=== PATIENT | female | born 1960 | race African-American/Black ===

== ENCOUNTER 2018-08-27 07:53 | Outpatient (CLI) | payer OTHER ==
--- NOTE | 2018-08-27 10:28 | RAD ---
LUMBAR SPINE 4 VIEWS: HISTORY: Low back pain. COMPARISON: MRI of 08/24/2018. FINDINGS: There is multilevel degenerative disk space height loss at L3-4, L4-5, and L5-S1. There is grade I L 3 over L4 anterolisthesis in the neutral position approximately 7 mm without significant translation with flexion or extension. Paraspinal soft tissues are unremarkable. IMPRESSION: No significant translation of the lumbar spine. Please see recent MRI exam. POS: [facility]
== END 2018-08-27 07:54 | disposition home or self-care (01) ==
LOC: MERGE 07:53 → BICRAD 07:53
PROVIDERS: ATTEND Neurological Surgery
DX: M54.16 Radiculopathy, lumbar region (principal)
CPT/HCPCS: 72110

== ENCOUNTER 2018-09-05 06:34 | Outpatient (CLI) | payer OTHER ==
--- NOTE | 2018-09-05 12:48 | ULT ---
ULTRASOUND ABDOMEN LIMITED: (RIGHT UPPER QUADRANT) HISTORY: Right upper quadrant abdominal pain in 58-year-old female. FINDINGS: The gallbladder has normal wall thickness and has no evidence of gallstones or sludge. The hepatic e chogenicity is normal. The right kidney has normal echogenicity and has no hydronephrosis. The panc reas is visualized, although ultrasound is relatively insensitive for pancreatic pathology compared t o CT and MRI. There is no biliary dilation. The common duct caliber is 3 mm. IMPRESSION: Normal. ruth ann POS: [facility]
== END 2018-09-05 06:35 | disposition home or self-care (01) ==
LOC: BICULT 06:34 → MERGE 07:15
PROVIDERS: ATTEND Family Medicine
DX: R10.11 Right upper quadrant pain (principal)
CPT/HCPCS: 76705

== ENCOUNTER 2019-11-26 15:09 | Outpatient (CLI) | payer OTHER ==
--- NOTE | 2019-11-26 15:44 | MMO ---
Bilateral MAMMO Bilat Screen [facility]. CLINICAL HISTORY: Patient is 59 years old and is seen for screening. The patient has the following family history of breast cancer: sister, at age 60. The patient has no personal history of cancer. VIEWS: The views performed were: bilateral craniocaudal with tomosynthesis and bilateral mediolateral oblique with tomosynthesis. FILMS COMPARED: The present examination has been compared to prior imaging studies performed at [facility] on 04/12/2016. This study has been interpreted with the assistance of computer-aided detection. MAMMOGRAM FINDINGS: The breasts are heterogeneously dense, which could obscure a lesion on mammography. There are stable benign appearing calcifications seen in both breasts. There are no suspicious masses, suspicious calcifications, or new areas of architectural distortion. IMPRESSION: THERE IS NO MAMMOGRAPHIC EVIDENCE OF MALIGNANCY. A ROUTINE FOLLOW-UP MAMMOGRAM IN 1 YEAR IS RECOMMENDED. THE RESULTS OF THIS EXAM WERE SENT TO THE PATIENT. ACR BI-RADS Category 2 - Benign finding MAMMOGRAPHY NOTE: 1. A negative mammogram report should not delay a biopsy if a dominant of clinically suspicious mass is present. 2. Approximately 10% to 15% of breast cancers are not detected by mammography. 3. Adenosis and dense breasts may obscure an underlying neoplasm. Reported by: KARIME NUNEZ MD Electonically Signed: [id number]
== END 2019-11-26 15:10 | disposition home or self-care (01) ==
LOC: BICMAMMO 15:09
PROVIDERS: ATTEND Internal Medicine Hospice and Palliative Medicine
DX: Z12.31 Encounter for screening mammogram for malignant neoplasm of breast (principal); Z80.3 Family history of malignant neoplasm of breast
CPT/HCPCS: 77063; 77067

== ENCOUNTER 2020-07-01 10:05 | Emergency (ER) | payer OTHER ==
[2020-07-01 11:39] LABS: Troponin I Less than 0.010 ng/mL (< 0.028)
[2020-07-01 11:40] LABS: ALT (SGPT) 336 U/L (8-55); AST (SGOT) 193 U/L (5-34); Albumin 4.1 g/dL (3.5-5.0); Alkaline Phosphatase 553 U/L (40-110); Anion Gap 19 mmol/L (10-20); BUN (Urea Nitrogen) 26 mg/dL (9.8-20.1); Bilirubin, Direct 2.4 mg/dL (0.1-0.3); Bilirubin, Total 3.4 mg/dL (0.2-1.2); Calc. Creatinine Clearance 0 mL/min (70-130); Calcium 8.9 mg/dL (7.8-10.44); Carbon Dioxide 16 mmol/L (22-29); Chloride 102 mmol/L (98-107); Estimated GFR-MDRD 46; Globulin 3.8 g/dL (2.4-3.5); Glucose 312 mg/dL (70-105); Lipase 51 U/L (8-78); Potassium 4.2 mmol/L (3.5-5.1); Protein, Total 7.9 g/dL (6.0-8.3); Sodium 133 mmol/L (136-145)
--- NOTE | 2020-07-01 12:07 | ULT ---
RIGHT UPPER QUADRANT ULTRASOUND: Date: 07/01/2020 INDICATION: History of right upper quadrant abdominal pain and abnormal LFTs. COMPARISON: Prior exam dated 09/05/2018. FINDINGS: There is diffuse increased echogenicity of the liver consistent with changes of fatty infiltration. L iver measures 13.25 cm. No focal hepatic lesion is evident. Gallbladder was normal appearing. No sono graphic Marie's sign reported. Common bile duct measures 1.6 mm. Right kidney measures 10.0 x 5.6 x 4.5 cm. No focal renal lesion or hydronephrosis evident. Visualized aspects of the pancreas are unrem arkable appearing. IMPRESSION: Fatty liver. POS: [facility]
[2020-07-01 12:12] LABS: #Basophils 0.1 thou/uL (0.0-0.2); #Eosinphils 0.2 thou/uL (0.0-0.7); #Lymphocytes 1.2 thou/uL (1.20-3.40); #Monocytes 0.4 thou/uL (0.11-0.59); #Neutrophils 2.2 thou/uL (1.40-6.50); %Basophils 1.5 % (0.0-1.0); %Eosinophils 5.1 % (0.0-10.0); %Lymphocytes 29.1 % (21.0-51.0); %Monocytes 9.4 % (0.0-10.0); %Neutrophils 54.9 % (42.0-75.0); Mean Corpuscular HGB CONC 34.4 g/dL (32.0-36.0); Mean Corpuscular Hemoglobin 31.6 pg (27.0-31.0); Mean Corpuscular Volume 91.9 fL (78.0-98.0); Platelet Count 239 thou/uL (130-400); RBC Distribution Width 11.6 % (11.5-14.5); Red Blood Cell (RBC) Count 4.11 mill/uL (4.20-5.40)
[2020-07-01 13:53] LABS: HBCM Index 0.08 S/CO (0-0.79); HBSAg Index 0.14 S/CO (0-0.99); Hep A IgM AB Non-Reactive (NonReactive); Hep A IgM S/CO 0.19 S/CO (0-0.79); Hep B Surf Ag Non-Reactive S/CO (NonReactive); Hep C IgG Ab Non-Reactive (NonReactive); Hep C Index 0.15 S/CO (0-0.79); Hepatitis B Core IgM Abs Non-Reactive (NonReactive)
[2020-07-01 15:41] LABS: ANA Symphony (Qualitative) Negative (Negative); ANA Symphony (Quantitative) 0.2 Ratio (< 0.7 Negative)
== END 2020-07-01 13:05 | disposition home or self-care (01) ==
LOC: ERS 10:05
DX: E11.22 Type 2 diabetes mellitus with diabetic chronic kidney disease (principal); N18.9 Chronic kidney disease, unspecified; R94.5 Abnormal results of liver function studies; E80.7 Disorder of bilirubin metabolism, unspecified; E11.10 Type 2 diabetes mellitus with ketoacidosis without coma; Z79.4 Long term (current) use of insulin
CPT/HCPCS: 36415; 76705; 80053; 80074; 80076; 83690; 84484; 85025; 86038; 86225; 93005

== ENCOUNTER 2020-12-18 09:33 | Outpatient (CLI) | payer OTHER | END 2020-12-18 09:34 | disposition home or self-care (01) | LOC: BICMAMMO 09:33 | PROVIDERS: ATTEND Internal Medicine Hospice and Palliative Medicine | DX: Z12.31 Encounter for screening mammogram for malignant neoplasm of breast (principal); Z80.3 Family history of malignant neoplasm of breast | CPT/HCPCS: 77063; 77067 ==

== ENCOUNTER 2023-02-15 07:54 | Outpatient (CLI) | payer BC | END 2023-02-15 07:55 | disposition home or self-care (01) | LOC: BICMAMMO 07:54 | PROVIDERS: ATTEND Internal Medicine Hospice and Palliative Medicine | DX: Z12.31 Encounter for screening mammogram for malignant neoplasm of breast (principal) | CPT/HCPCS: 77063; 77067 ==

== ENCOUNTER 2024-02-23 07:51 | Outpatient (CLI) | payer BC | END 2024-02-23 07:52 | disposition home or self-care (01) | LOC: BICMAMMO 07:51 | PROVIDERS: ATTEND Internal Medicine Hospice and Palliative Medicine | DX: Z12.31 Encounter for screening mammogram for malignant neoplasm of breast (principal); Z80.3 Family history of malignant neoplasm of breast | CPT/HCPCS: 77063; 77067 ==